=== PATIENT | female | born 1980 | race Caucasian/White ===

== ENCOUNTER → 2024-06-02 09:09 | Outpatient (REF) | payer OTHER, SELFPAY | LOC: RAD 09:09 | PROVIDERS: ATTENDING PHYSICIAN Physician Assistant | DX: M54.2 Cervicalgia (principal); M48.02 Spinal stenosis, cervical region | CPT/HCPCS: 72050 ==

== ENCOUNTER → 2024-07-08 06:35 | Outpatient (REF) | payer OTHER, SELFPAY | LOC: MRI 3T 06:35 | PROVIDERS: ATTENDING PHYSICIAN Physician Assistant | DX: M48.02 Spinal stenosis, cervical region (principal); M54.2 Cervicalgia | CPT/HCPCS: 72141 ==

== ENCOUNTER → 2024-08-31 14:37 | Outpatient (REF) | payer OTHER, SELFPAY | LOC: HWRAD 14:37 | PROVIDERS: ATTENDING PHYSICIAN Neurological Surgery; FAMILY PHYSICIAN Family Medicine | DX: Z98.1 Arthrodesis status (principal) | CPT/HCPCS: 72125 ==

== ENCOUNTER → 2024-12-22 09:25 | Outpatient (REF) | payer OTHER, SELFPAY | LOC: RAD 09:25 | PROVIDERS: ATTENDING PHYSICIAN Neurological Surgery; FAMILY PHYSICIAN Pediatrics | DX: Z98.1 Arthrodesis status (principal) | CPT/HCPCS: 72040 ==

== ENCOUNTER 2025-06-24 05:42 | Emergency (ER) | payer OTHER, SELFPAY ==
[2025-06-24] VITALS (11 sets, daily range): BP systolic 129–178; BP diastolic 71–116; BMI 41.2
--- NOTE | 2025-06-24 06:21 | ED.GENMED ---
History of Present Illness
General
Chief Complaint: Dental Problem
Source: patient
Time Seen by Provider: 06/24/25 06:05
History of Present Illness
History of Present Illness:
45-year-old female presents the emergency room complaining of facial abscess. Patient has been experiencing dental pain in the left side for several weeks. She is taking courses of antibiotics while awaiting an appointment at dental clinic. She
does not have dental insurance. Recently, couple days ago she felt something crack in her left lower molar. She then developed increased pain and swelling. Her family doctor started her on azithromycin which she started yesterday. However during
the night the facial swelling has increased tremendously. She states she is having difficulty swallowing. No difficulty breathing at this point. No fever. Patient is unable to open her mouth fully.
Past History
Past History
ED Past Medical History: Hypothyroidism and Other (psoriasis)
Social History
Personal:
Living: with family
Phy Exam
Physical Exam
Physical Exam:
General: Awake, Alert, Oriented X3. Appears uncomfortable
Vitals: unremarkable
Head: Atraumatic
Face\\mouth: Significant swelling noted left cheek, submandibular area and left lateral neck. Patient is quite tender to palpation along the angle of the mandible. 2-3 finger trismus. No stridor. Pain to percussion left lower molars
Eyes: Pupils equal, EOMI
Throat: Airway intact, no exudates
Neck: Left-sided neck swelling
Lungs: Clear and equal b/l
Heart: Regular rate, no murmurs
Neuro: Nonfocal
Skin: Facial flushing
Extremities: pulses equal b/l, no edema
Course
Orders/Labs/Results
Orders:
Orders
06/24/25 06:10
CT Neck With Iv Contrast Urgent
Comment:
Reason For Exam: neck/facial swelling eval for abscess
HYDROmorphone [Dilaudid] 0.5 mg IV NOW STA
06/24/25 06:13
0.9% Sodium Chloride 1000 ml [Nss] 1,000 ml IV BOLUS
06/24/25 06:17
MetroNIDAZOLE 500 MG/100 ML [Flagyl 500 mg] 100 ml IV NOW
06/24/25 06:19
CeFAZolin 2 GRAM [Ancef] 2 grams in 10 ml IV NOW
06/24/25 06:28
Basic Metabolic Panel Urgent
Complete Blood Count/With Diff Urgent
06/24/25 07:29
Lorazepam [Ativan] 1 mg PO NOW STA
06/24/25 08:28
Ketorolac [Toradol] 15 mg IV NOW STA
06/24/25 11:57
PRN Pain Medication Management As Directed
May give lesser potent ordered pain med per pt: Yes
preference::
Protocol:: Medication orders for pain may be administered in a
manner that supports deferring to patient preference
when the pt is:
- Requesting an ordered lesser potent pain medication.
Least to most potent pain medications are defined
as: acetaminophen < NSAID < tramadol < opioids
(morphine, oxycodone, hydromorphone).
- Requesting a lesser dose of the same medication IF
ORDERED.
- Requesting a less intrusive route of administration
if both routes are prescribed by the provider (PO <
IV).
06/24/25 12:02
Code Status As Directed
Resuscitation Status: Full Code
Abnormal Lab Results
06/24/25
06:28
WBC 11.3 H 10^3/uL
(4.8-10.8)
MCH 31.7 H pg
(27.0-31.0)
MCHC 32.7 L g/dL
(33.0-37.0)
MPV 10.6 H fL
(7.4-10.4)
Abs Immat Gran (auto) 0.1 H 10^3/uL
(0-0.05)
Absolute Neuts (auto) 8.8 H 10^3/uL
(1.4-6.5)
Absolute Monos (auto) 1.1 H 10^3/uL
(0.1-0.6)
Neutrophils % 78.1 H %
(42.2-75.2)
Lymphocytes % 11.2 L %
(20.5-51.1)
Monocytes % 9.8 H %
(1.7-9.3)
Sodium 133 L mmol/L
(135-145)
BUN 6 L mg/dl
(7-17)
Glucose 126 H mg/dl
(70-99)
06/24/25 06:28
06/24/25 06:28
Vital Signs
Initial and Last Documented VS:
Initial Vital Signs
Temp Pulse Resp BP Pulse Ox
98.2 F 94 28 178/116 97
06/24/25 05:43 06/24/25 05:43 06/24/25 05:43 06/24/25 05:43 06/24/25 05:43
Last Documented Vital Signs
Temp Pulse Resp BP Pulse Ox
98.6 F 84 47 141/85 97
06/24/25 11:00 06/24/25 14:01 06/24/25 14:00 06/24/25 14:01 06/24/25 14:01
MDM/Problems Addressed
Differential Diagnosis Includes:
Dental abscess, deep space neck infection,
MDM/Problems Addressed:
Patient presents with significant left facial swelling and trismus. Patient has a long list of allergies. Her allergy to amoxicillin happened as a child in the form of a rash. She has not had any penicillin type medications since then. Unclear
if she is ever actually had a cephalosporin or reaction to a cephalosporin. Will cover with Ancef and Flagyl at this point pending CAT scan for further delineation of the site and size of abscess/Cellulitis
CT shows a relatively small abscess 1 cm x 1.5 cm. Plan was to hospitalize for IV antibiotics. Hospitalist asked for [facility] input. [facility] recommended transfer to [facility] as they do not feel capable to handle this type of problem. Patient accepted by
[facility] as an ER to ER transfer.
*Pulse Oximetry
SaO2: 98
Oxygen Mode of Delivery: Room air
Patient hypoxic: no
*Critical Care Note
Total Time (30-74mins, 75-104mins- exclusive of procedures): Not Applicable
ED Attending Note
-
Portions of this chart may have been created with voice recognition software.� Occasional wrong word or��sound alike� substitutions may have occurred due to the inherent limitations of voice recognition software.
Discharge Plan
Departure
Patient Disposition: Acute Care Hospital
Date of Disposition: 06/24/25
Time of Disposition: 08:33
Condition: Fair
Discharge Problem:
Facial cellulitis, Abscess, dental
Hospital Transfer
Other hospital: [facility]
I certify that the patient requires transfer: Yes
Discussed case with accepting physician: Dr Carrion
Reason for transfer: specialties available
Interventions
Interventions:
*Risk Screen - Suicide Last Done: 06/24/25 05:43
*General Assessment Last Done: 06/24/25 06:12
*Neglect/Abuse Screening Last Done: 06/24/25 05:43
*ED- Fall Risk Assessment Last Done: 06/24/25 06:12
*ED COVID-19 Vaccine History Last Done: 06/24/25 06:12
*ED Influenza Vaccine History Last Done: 06/24/25 06:12
ED-Skin Assessment Last Done: 06/24/25 07:38
[2025-06-24] MEDS: DILAUDID 0.5 MG IV ×2 (06:25→14:20)
[2025-06-24] MEDS: NSS 1000 IV (06:26)
[2025-06-24] MEDS: ANCEF 10 IV (06:27)
[2025-06-24] MEDS: FLAGYL 500 MG 100 IV (06:27)
[2025-06-24 06:39] LABS: Hematocrit 43.1 % (37.0-47.0); Hemoglobin 14.1 g/dL (12.0-16.0); Mean Corp Hgb Conc. 32.7 g/dL (33.0-37.0); Mean Corpuscular Volume 96.9 fL (81.0-99.0); Nucleated Red Blood Cells % 0 %; Platelet Count 186 10^3/uL (130-400); Red Cell Dist. Width 11.9 % (11.5-14.5)
[2025-06-24 06:53] LABS: Blood Urea Nitrogen 6 mg/dl (7-17); Calcium 9.7 mg/dl (8.4-10.2); Carbon Dioxide 26 mmol/L (22-30); Chloride 99 mmol/L (98-107); Estimated Creatinine Clearance 106 ml/min; Glucose 126 mg/dl (70-99); Potassium 3.8 mmol/L (3.5-5.1); Sodium 133 mmol/L (135-145); eGFR > 60.00
[2025-06-24] MEDS: ATIVAN 1 MG PO (07:32)
[2025-06-24] MEDS: TORADOL 15 MG IV (08:36)
--- NOTE | 2025-06-24 11:43 | EDRN ---
hospitalist currently at the pts bedside
--- NOTE | 2025-06-24 12:11 | HPS.HSE ---
Family Physician
-
Family Physician: ABE Simeon
Chief Complaint
-
Skin abscess
History of Present Illness
45-year-old female with history of GERD, constipation, psoriatic arthritis, recent back surgery (C5-C6 fusion surgery October 2024), presents with facial swelling. Patient has been experiencing dental pain in the left side for several weeks. She
was waiting for an appointment at the dental clinic however she does not have dental insurance. Recently, couple days ago she felt something crack in her left lower molar. She then developed increased pain and swelling. Patient states that she
started to have left cheek swelling 1 day ago, she was seen by her family doctor and was prescribed azithromycin. However during the night the facial swelling has increased tremendously. She states she is having difficulty swallowing. No
difficulty breathing at this point. No fever. Patient is unable to open her mouth fully.
Medical History
Past Medical History
Past Medical History: Reports Hypothyroidism and Other (Psoriatec arthritis)
Past Surgical History: Reports Other (Back surgery C5-C6 fusion in October 2022)
Social History
Tobacco: Non-smoker
Alcohol: None
Drug: None
Personal:
Living: Alone
Employment: Employed
Family History
Family History: Not pertinent
Allergies / Home Medications
Allergies reflects when Allergies were last updated in [facility].
Home Medications with original date entered in [facility]
Allergy/Medication List:
Allergies
Allergy/AdvReac Type Severity Reaction Status Date / Time
amoxicillin Allergy Rash A Verified 06/24/25 05:46
CHILD
bee venom protein (honey bee) Allergy Swelling Verified 06/24/25 05:46
Cephalosporins Allergy Rash? Verified 06/24/25 05:46
vomiting
eggplant Allergy throat Verified 06/24/25 05:46
closes
erythromycin base Allergy Rash Verified 06/24/25 05:46
latex Allergy Rash Verified 06/24/25 05:46
morphine Allergy rash, Verified 06/24/25 05:46
vomiting
Penicillins Allergy Rash A Verified 06/24/25 05:46
CHILD
Home Medications
clobetasol 0.05 % topical spray (Clobex) 1 applic topical PRN PRN Psorisis 07/16/20
levothyroxine 88 mcg tablet 88 mcg PO DAILY Thyroid 07/16/20
sertraline 50 mg tablet 50 mg PO BID Mental Health/Anxiety 07/16/20
Medical Marijuana 1 unit PO PRN PRN pain, sleep, anxiety 06/22/22
guselkumab 100 mg/mL subcutaneous auto-injector (Tremfya) 80 mg SC Q4W Antipsoriatic Agent; Interleukin-23 Inhibitor; Monoclonal Antibody 06/22/22
Held on 07/16/22. Instructions: Resume on 08/16/22.
magnesium 250 mg tablet 500 mg PO DAILY Supplement 06/22/22
omeprazole 20 mg capsule,delayed release 20 mg PO DAILYPRN PRN GERD 06/23/22
Saccharomyces boulardii 250 mg capsule (Florastor) 250 mg PO BID #10 caps 07/16/22
acetaminophen 500 mg tablet (Pain Reliever Extra Strength (acetaminophen)) 1,000 mg (2 x 500 mg) PO Q6H #30 tabs 07/16/22
docusate sodium 100 mg capsule 100 mg PO BID #30 caps 07/16/22
lorazepam 1 mg tablet 1 mg PO TID PRN anxiety/muscle spasms #20 tabs 07/16/22
sennosides 8.6 mg tablet (senna) 17.2 mg (2 x 8.6 mg) PO BID #30 tabs 07/16/22
triamterene 37.5 mg-hydrochlorothiazide 25 mg tablet 1 tab PO DAILY Fluid retention/Swelling #1 tab 07/16/22
Review of Systems
-
History Source: Patient
A 12 point ROS was completed and negative except as noted: Yes
Physical Exam
Vital Signs
Vital Signs
Temp Pulse Resp BP Pulse Ox
98.6 F 70 19 162/84 99
06/24/25 07:38 06/24/25 08:30 06/24/25 08:30 06/24/25 08:00 06/24/25 08:30
Physical Exam
General: Conversant and Other (Uncomfortable due to pain)
HEENT: NormoCephalic, Anicteric and Other (Significance was swelling on left cheek, submandibular area and left lateral neck, +very tender on palpation, +moderate erythema surrounding left cheek upto left ear. 2-3 finger trismus. No stridor. No
difficulty breathing)
Respiratory: Clear
Cardiac: S1/S2 and Regular Rhythm
GI: Soft, Non Tender and Non Distended
Musculoskeletal: No Edema
Skin: Warm and Dry
Neuro: AO x 3
Hematologic/Lymphatic: No Lymphadenopathy
Psych: Calm
Laboratory Results
-
06/24/25 06:28
06/24/25 06:28
Data Reviewed
-
CT Scan: Report Reviewed by me and Discussed with Physician
Lab Data: Labs Reviewed by me and Discussed with Physician
Impression/Plan
-
IMPRESSION:
Acute cellulitis of left cheek secondary to molar infection
Leukocytosis
History of GERD
History of chronic constipation
Hypothyroidism
Anxiety/depression
PLAN:
Acute cellulitis of left cheek secondary to molar infection
Admit to IMU
IV Ancef for gram-positive coverage
Start IV clindamycin for MRSA, anaerobic coverage
IV Dilauded for pain control
IV Toradol 15 mg prn for pain control
Allergic to penicillin
Consult OMFS
Consult ID
Incision and drainage for developing abscess
Hold all oral medication
Head bed elevation more than 45 degree
Airway protection , suction for secretion
NPO
Leukocytosis
Afebrile, white count 11,500
Likely because of underlying infection
Monitor white count and temperature curve
History of GERD
Hold PPI
History of constipation
Hold levothyroxine
History of anxiety/depression
Hold Ativan, sertraline
Start IV Ativan as needed
Full code
Lovenox
NPO
--- NOTE | 2025-06-24 12:43 | EDRN ---
hospitalist currently at the pts bedside
--- NOTE | 2025-06-24 13:35 | EDRN ---
this RN called IMU to give verbal report and was told that the nurse is busy and that the receiving IMU nurse will all this RN back
--- NOTE | 2025-06-24 13:35 | EDRN ---
this RN called IMU to give verbal report and was placed on hold, after being on hold for a few minutes, this RN was told that the nurse is busy and that the receiving IMU nurse will all this RN back
--- NOTE | 2025-06-24 13:46 | CON.MD ---
Consultation - Medical
-
HPI :
45-year-old female with history of GERD, constipation, psoriatic arthritis, recent back surgery (C5-C6 fusion surgery October 2024), presents with facial swelling. Patient has been experiencing dental pain in the left side for several weeks. She was
waiting for an appointment at the dental clinic however she does not have dental insurance. Recently, couple days ago she felt something crack in her left lower molar. She then developed increased pain and swelling. Patient states that she started
to have left cheek swelling 1 day ago, she was seen by her family doctor and was prescribed azithromycin. However during the night the facial swelling has increased tremendously. She states she is having difficulty swallowing. No difficulty
breathing at this point. No fever. Patient is unable to open her mouth fully.
Past Medical History
Past Medical History: Reports Hypothyroidism and Other (Psoriatec arthritis)
Past Surgical History: Reports Other (Back surgery C5-C6 fusion in October 2022)
Social History
Tobacco: Non-smoker
Alcohol: None
Drug: None
Personal:
Living: Alone
Employment: Employed
Family History
Family History: Not pertinent
Allergies
Allergy/AdvReac
Type
Severity
Reaction
Status
Date / Time
amoxicillin
Allergy
�
Rash A
Verified
06/24/25 05:46
�
�
�
CHILD
�
�
bee venom protein (honey bee)
Allergy
�
Swelling
Verified
06/24/25 05:46
Cephalosporins
Allergy
�
Rash?
Verified
06/24/25 05:46
�
�
�
vomiting
�
�
eggplant
Allergy
�
throat
Verified
06/24/25 05:46
�
�
�
closes
�
�
erythromycin base
Allergy
�
Rash
Verified
06/24/25 05:46
latex
Allergy
�
Rash
Verified
06/24/25 05:46
morphine
Allergy
�
rash,
Verified
06/24/25 05:46
�
�
�
vomiting
�
�
Penicillins
Allergy
�
Rash A
Verified
06/24/25 05:46
�
�
�
CHILD
�
�
Home Medications
clobetasol 0.05 % topical spray (Clobex) 1 applic topical PRN PRN Psorisis 07/16/20
levothyroxine 88 mcg tablet 88 mcg PO DAILY Thyroid 07/16/20
sertraline 50 mg tablet 50 mg PO BID Mental Health/Anxiety 07/16/20
Medical Marijuana 1 unit PO PRN PRN pain, sleep, anxiety 06/22/22
guselkumab 100 mg/mL subcutaneous auto-injector (Tremfya) 80 mg SC Q4W Antipsoriatic Agent; Interleukin-23 Inhibitor; Monoclonal Antibody 06/22/22
Held on 07/16/22. Instructions: Resume on 08/16/22.
magnesium 250 mg tablet 500 mg PO DAILY Supplement 06/22/22
omeprazole 20 mg capsule,delayed release 20 mg PO DAILYPRN PRN GERD 06/23/22
Saccharomyces boulardii 250 mg capsule (Florastor) 250 mg PO BID #10 caps 07/16/22
acetaminophen 500 mg tablet (Pain Reliever Extra Strength (acetaminophen)) 1,000 mg (2 x 500 mg) PO Q6H #30 tabs 07/16/22
docusate sodium 100 mg capsule 100 mg PO BID #30 caps 07/16/22
lorazepam 1 mg tablet 1 mg PO TID PRN anxiety/muscle spasms #20 tabs 07/16/22
sennosides 8.6 mg tablet (senna) 17.2 mg (2 x 8.6 mg) PO BID #30 tabs 07/16/22
triamterene 37.5 mg-hydrochlorothiazide 25 mg tablet 1 tab PO DAILY Fluid retention/Swelling #1 tab 07/16/22
Review of Systems
-
History Source: Patient
A 12 point ROS was completed and negative except as noted: Yes
Physical Exam
Vital Signs
Vital Signs
Temp
Pulse
Resp
BP
Pulse Ox
98.6 F
70
19
162/84
99
06/24/25 07:38
06/24/25 08:30
06/24/25 08:30
06/24/25 08:00
06/24/25 08:30
Physical Exam
General: Conversant and Other (Uncomfortable due to pain)
HEENT: NormoCephalic, Anicteric and Other (Significance was swelling on left cheek, submandibular area and left lateral neck, +very tender on palpation, +moderate erythema surrounding left cheek upto left ear. 2-3 finger trismus. No stridor. No
difficulty breathing)
Respiratory: Clear
Cardiac: S1/S2 and Regular Rhythm
GI: Soft, Non Tender and Non Distended
Musculoskeletal: No Edema
Skin: Warm and Dry
Neuro: AO x 3
Hematologic/Lymphatic: No Lymphadenopathy
Psych: Calm
Impression/Plan
-
IMPRESSION:
Acute cellulitis with abscess of left cheek secondary to molar infection
Leukocytosis
History of GERD
History of chronic constipation
Hypothyroidism
Anxiety/depression
PLAN:
Acute cellulitis with abscessof left cheek secondary to molar infection
Continue Ancef for gram-positive coverage
Start IV clindamycin for MRSA, anaerobic coverage
IV Dilauded for pain control
IV Toradol 15 mg prn for pain control
Allergic to penicillin
OM is unable to provide [facility] intervention by our on-yard caller.
Need transfer to [place] for I&D
Hold all oral medication
Head bed elevation more than 45 degree
Airway protection , suction for secretion
NPO
Leukocytosis
Afebrile, white count 11,500
Likely because of underlying infection
Monitor white count and temperature curve
History of GERD
Hold PPI
History of constipation
Hold levothyroxine
History of anxiety/depression
Hold Ativan, sertraline
Start IV Ativan as needed
Full code
Lovenox
NPO
Consultation
-
Date/Time Consultation Requested: 06/24/25
Date/Time Consultation Performed: 06/24/25
Requesting Provider: Dr. Simon Garcia
Performing Provider: Dr Liz Baca
Reason for Consultation: skin abscess
--- NOTE | 2025-06-24 13:50 | EDRN ---
the pt will not longer be admitted to ED and will instead be transferred per Dr. Curtis
--- NOTE | 2025-06-24 14:07 | HPS.HSE ---
Addendum entered and electronically signed by Simon Garcia MD 06/24/25 14:14:
45 female history of GERD constipation psoriatic arthritis, recent back surgery who presented with facial swelling worse on the left side ongoing for the last couple weeks however over the last 1 day has significantly evolved after hearing her tooth
crack. Due to antibiotic allergies unable to tolerate anaerobic antibiotic such as penicillins therefore PCP started her on azithromycin.
CTNeck
IMPRESSION:
There is a 1.5 x 0.5 x 1.0 cm subperiosteal abscess along the left mandibular body with extensive overlying superficial soft tissue infection/cellulitis involving the left mandibular and submandibular soft tissues. There is associated left-sided
lymphadenopathy which is likely reactive.
Upon my evaluation she tells me that it is hard for her to swallow and when she does need to swallow she forcefully swallows in order to manage oral secretions. At this time she can only open her mouth approximately 2 finger widths. She has severe
tenderness along the angle of mandible. Though submandibular is soft.
ER recommended Ms. Garibay for admission with a notation that [facility] has been notified however there was no response from [facility] for a few hours. Once [facility] did get back to us recommended transfer to [place] for I&D.
Swelling was ongoing for 3 weeks and then within the last 24 hours she complained of the swelling worsening within 24 hours which is likely related to the abscess. I do believe we need to treat the abscess quicker to prevent any further compromise.
My concern is that the patient may be progressing towards septic shock given the underlying abscess and how progressive her symptoms have been in 24hours. We are unable to perform an incision and drainage here. Also concerned about airway protection
due to the fact she has to forcefully swallow her own secretions. Any delay transfer could worsen her clinical status. Timely transfer is a priority.
Will need to monitor for Axel angina as well
Will place IMU order for airway monitoring
Intubate if airway concern
IVAtb with Ancef and Clinda (Gram neg coverage/Gram positive coverage/MRSA/Anaerobes)
IVFluids
ID Consult
Transfer to [place] which is being set up by the ED (Dr. Curtis)
Original Note:
Family Physician
-
Family Physician: ABE Simeon
45-year-old female with history of GERD, constipation, psoriatic arthritis, recent back surgery (C5-C6 fusion surgery October 2024), presents with facial swelling. Patient has been experiencing dental pain in the left side for several weeks. She was
waiting for an appointment at the dental clinic however she does not have dental insurance. Recently, couple days ago she felt something crack in her left lower molar. She then developed increased pain and swelling. Patient states that she started
to have left cheek swelling 1 day ago, she was seen by her family doctor and was prescribed azithromycin. However during the night the facial swelling has increased tremendously. She states she is having difficulty swallowing. No difficulty
breathing at this point. No fever. Patient is unable to open her mouth fully.
Chief Complaint
-
facial swelling
History of Present Illness
45-year-old female with history of GERD, constipation, psoriatic arthritis, recent back surgery (C5-C6 fusion surgery October 2024), presents with facial swelling. Patient has been experiencing dental pain in the left side for several weeks. She was
waiting for an appointment at the dental clinic however she does not have dental insurance. Recently, couple days ago she felt something crack in her left lower molar. She then developed increased pain and swelling. Patient states that she started
to have left cheek swelling 1 day ago, she was seen by her family doctor and was prescribed azithromycin. However during the night the facial swelling has increased tremendously. She states she is having difficulty swallowing. No difficulty
breathing at this point. No fever. Patient is unable to open her mouth fully.
Medical History
Past Medical History
Past Medical History: Reports Other (Hypothyroidism and Other (Psoriatec arthritis))
Past Surgical History: Reports Other (Back surgery C5-C6 fusion in October 2022), hysterectomy)
Social History
Tobacco: Non-smoker
Alcohol: None
Drug: Marijuana
Personal:
Living: Alone
Employment: Employed
Family History
Family History: Not pertinent
Allergies / Home Medications
Allergies reflects when Allergies were last updated in [facility].
Home Medications with original date entered in [facility]
Allergy/Medication List:
Allergies
Allergy/AdvReac Type Severity Reaction Status Date / Time
amoxicillin Allergy Rash A Verified 06/24/25 05:46
CHILD
bee venom protein (honey bee) Allergy Swelling Verified 06/24/25 05:46
Cephalosporins Allergy Rash? Verified 06/24/25 05:46
vomiting
eggplant Allergy throat Verified 06/24/25 05:46
closes
erythromycin base Allergy Rash Verified 06/24/25 05:46
latex Allergy Rash Verified 06/24/25 05:46
morphine Allergy rash, Verified 06/24/25 05:46
vomiting
Penicillins Allergy Rash A Verified 06/24/25 05:46
CHILD
Home Medications
levothyroxine 88 mcg tablet 88 mcg PO DAILY Thyroid 07/16/20
sertraline 50 mg tablet 50 mg PO DAILY Mental Health/Anxiety 07/16/20
Medical Marijuana 1 cap PO DAILYPRN PRN pain, sleep, anxiety 06/22/22
omeprazole 20 mg capsule,delayed release 20 mg PO DAILYPRN PRN GERD 06/23/22
triamterene 37.5 mg-hydrochlorothiazide 25 mg tablet 1 tab PO DAILY Fluid retention/Swelling #1 tab 07/16/22
calcium polycarbophil 625 mg tablet (FiberCon) 625 mg PO DAILY Constipation 06/24/25
guselkumab 200 mg/2 mL subcutaneous syringe (Tremfya) 200 mg SC Q4W 06/24/25
ibuprofen 125 mg-acetaminophen 250 mg tablet (Advil Dual Action) 2 tab PO Q8H mild pain 06/24/25
Review of Systems
-
History Source: Patient and Family
A 12 point ROS was completed and negative except as noted: Yes
Physical Exam
Vital Signs
Vital Signs
Temp Pulse Resp BP Pulse Ox
98.6 F 82 16 129/81 99
06/24/25 11:00 06/24/25 13:00 06/24/25 13:00 06/24/25 13:00 06/24/25 13:00
Physical Exam
General: Conversant and Pain
HEENT: NormoCephalic, Anicteric and Other (Significance was swelling on left cheek, submandibular area and left lateral neck, +very tender on palpation, +moderate erythema surrounding left cheek upto left ear. 2-3 finger trismus. No stridor. No
difficulty breathing)
Respiratory: Clear
Cardiac: S1/S2 and Regular Rhythm
GI: Soft, Non Tender and Non Distended
Musculoskeletal: No Edema
Skin: Warm
Neuro: AO x 3
Hematologic/Lymphatic: No Lymphadenopathy
Psych: Calm
Laboratory Results
-
06/24/25 06:28
06/24/25 06:28
Data Reviewed
-
CT Scan: Report Reviewed by me and Discussed with Physician
Lab Data: Labs Reviewed by me and Discussed with Physician
Impression/Plan
-
IMPRESSION:
Acute cellulitis of left cheek secondary to molar infection
Leukocytosis
History of GERD
History of chronic constipation
Hypothyroidism
Anxiety/depression
PLAN:
Acute cellulitis of left cheek secondary to molar infection
Admit to IMU
IV Ancef for gram-positive coverage
Start IV clindamycin for MRSA, anaerobic coverage
IV fluids
IV Dilauded for pain control
IV Toradol 15 mg prn for pain control
Allergic to penicillin
Spoke with [facility] unable to provide intervention, likely transfer patient to [place] for incision and drainage
Consult ID
Incision and drainage for developing abscess
Hold all oral medication
Head bed elevation more than 45 degree
Airway protection , suction for secretion
NPO
Leukocytosis
Afebrile, white count 11,500
Likely because of underlying infection
Monitor white count and temperature curve
History of GERD
Hold PPI
History of constipation
Hold levothyroxine
History of anxiety/depression
Hold Ativan, sertraline
Start IV Ativan as needed
Full code
Lovenox
NPO
[2025-06-24] MEDS: STERILE WATER FOR INJECTION IV (14:47)
[2025-06-24] MEDS: MERREM IV (14:47)
[2025-06-24] MEDS: MERREM 1000 MG IV (14:58)
[2025-06-24] MEDS: STERILE WATER FOR INJECTION 20 ML IV (14:58)
[2025-06-24] MEDS: ZOFRAN 4 MG IV (14:58)
--- NOTE | 2025-06-24 16:02 | EDRN ---
[facility]ute Care Transport has arrived and this RN gave verbal report to rBent FUENTES
== END 2025-06-24 16:07 | disposition short-term general hospital (02) ==
LOC: EMR 05:42
PROVIDERS: ATTENDING PHYSICIAN Hospitalist; EMERGENCY PHYSICIAN Emergency Medicine; FAMILY PHYSICIAN Physician Assistant
DX: K12.2 Cellulitis and abscess of mouth (principal); K04.7 Periapical abscess without sinus; E03.9 Hypothyroidism, unspecified; F41.9 Anxiety disorder, unspecified; F32.A Depression, unspecified; L40.50 Arthropathic psoriasis, unspecified; K21.9 Gastro-esophageal reflux disease without esophagitis; Z88.0 Allergy status to penicillin; Z88.1 Allergy status to other antibiotic agents
CPT/HCPCS: 99285; 96365; 96375 ×5; 96376; 96361; 70491; 80048; 85025; J2185; Q9967